=== PATIENT | female | born 1970 | race Caucasian/White ===

== ENCOUNTER 2018-12-15 19:04 | Emergency (ER) | payer OTHER ==
[2018-12-15] MEDS ORDERED: KETOROLAC 30 MG/ML 1 ML VIAL IM STA (19:33)
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
[2018-12-15 21:41] VITALS: BP 125/78; PULSE 93; RESP 17; TEMP 97
== END 2018-12-15 21:37 | disposition home or self-care (01) ==
LOC: EC 19:04
DX: S16.1XXA Strain of muscle, fascia and tendon at neck level, initial encounter (principal); J45.909 Unspecified asthma, uncomplicated; E78.5 Hyperlipidemia, unspecified; F41.9 Anxiety disorder, unspecified; F32.9 Major depressive disorder, single episode, unspecified; Z79.51 Long term (current) use of inhaled steroids; Z79.899 Other long term (current) drug therapy; Z88.0 Allergy status to penicillin; Z88.2 Allergy status to sulfonamides; Z88.4 Allergy status to anesthetic agent; Z88.5 Allergy status to narcotic agent; Z98.84 Bariatric surgery status; V59.40XA Driver of pick-up truck or van injured in collision with unspecified motor vehicles in traffic accident, initial encounter; Y92.410 Unspecified street and highway as the place of occurrence of the external cause
CPT/HCPCS: 72110; 72125; 70450; 99284; 96372; J1885